=== PATIENT | male | born 1985 | race Caucasian/White ===

== ENCOUNTER 2020-12-28 20:47 | Emergency (ER) | payer SELFPAY ==
[2020-12-28 20:55] VITALS: BMI 23.1
--- NOTE | 2020-12-28 21:01 | ECG_ITS ---
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 Measurements Intervals [place] Rate: 92 P: 52 CT: 128 QRS: 82 QRSD: 98 T: 81 QT: 355 QTc: 439 Interpretive Statements SINUS RHYTHM No previous ECG available for comparison Electronically Signed On 12-29-2020 18:10:30 CDT by Ron Scales M.D. [id number]
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
[2020-12-28 21:12] VITALS: BP 135/87; BP 136/86; PULSE 84; PULSE 95; RESP 17; RESP 20; TEMP 36.6; O2SAT 97
[2020-12-28 21:28] VITALS: BP 140/84; PULSE 93; RESP 23; O2SAT 98
[2020-12-28 21:36] LABS: Basophils % 0.5 %; Eosinophils # 0.1 10^3/uL (0.0-0.8); Eosinophils % 0.8 %; Hematocrit 45.7 % (42.0-52.0); Hemoglobin 14.8 g/dL (11.7-16.6); Lymphocytes # 1.9 10^3/uL (0.8-4.8); Lymphocytes % 22.4 %; Mean Corpuscular HGB Conc 32.4 g/dL (30.0-36.0); Mean Corpuscular Volume 92.5 fL (80-94); Mean Platelet Volume 10.3 fL (7.4-10.4); Monocytes # 0.5 10^3/uL (0.2-0.9); Monocytes % 5.9 %; Neutrophils # 5.82 10^3/uL (1.8-7.7); Neutrophils % 69.8 %; Nucleated Red Blood Cells % 0 %; Platelet Count 212 10^3/cmm (130-400); Red Blood Count 4.94 10^6/uL (4.1-5.3); White Blood Count 8.3 10^3/uL (4.0-10.0)
[2020-12-28 21:59] LABS: Alanine Aminotransferase 201 U/L (0-41); Albumin Level 4.3 g/dL (3.5-5.2); Alcohol Level 93 mg/dL (0-10); Alkaline Phosphatase 100 IU/L (40-130); Blood Urea Nitrogen 16 mg/dL (6-20); Calcium 8.7 mg/dL (8.5-10.5); Carbon Dioxide 21 mmol/L (22-29); Chloride 104 mmol/L (98-107); Globulin 2.5 g/dL (1.3-4.6); Glomerular Filtration Rate 86.1 mL/min (90-130); Glucose 84 mg/dL (65-115); Osmolality Calculated 296 mOsm/kg (285-295); Sodium 143 mmol/L (136-145); Total Bilirubin 0.3 mg/dL (0.15-1.2); Total Protein 6.8 g/dL (6.6-8.7)
[2020-12-28 22:05] LABS: Anion Gap 22.8 (5-19); Aspartate Amino Transferase 120 U/L (0-40); Potassium 4.8 mmol/L (3.5-5.1)
[2020-12-28] MEDS: iohexol 300 mg/mL 100 mL Btl IV (22:20)
[2020-12-29 00:52] VITALS: BP 140/84; PULSE 93; RESP 16; O2SAT 98
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
== END 2020-12-29 00:35 | disposition home or self-care (01) ==
PROVIDERS: Emergency Provider Emergency Medicine; PCP Internal Medicine
DX: S02.85XA Fracture of orbit, unspecified, initial encounter for closed fracture (principal); V53.5XXA Driver of pick-up truck or van injured in collision with car, pick-up truck or van in traffic accident, initial encounter
CPT/HCPCS: 70450; 70486; 71260; 73590; 74177; 80053; 80307; 85025; 93005; 99283; Q9967